=== PATIENT | male | born 1980 | race Two or more races ===

== ENCOUNTER 2018-09-23 23:28 | Inpatient (IN) | payer MEDICAID, OTHER ==
[~2018-09-23] VITALS: Ht 172.7 cm; Wt 70.0 kg
[2018-09-23] MEDS ORDERED: morphine 4 MG/ML inj SYRINge IV ONE (23:35)
[2018-09-23] MEDS ORDERED: NO HOME MEDS (23:39)
[2018-09-24] MEDS ORDERED: ondansetron/PF 4mg/2ml inj IV PRN ×2 (01:00→08:45)
[2018-09-24] MEDS ORDERED: mag hydrox/Alum hydrox/simeth 30ml oral suspension PO PRN (01:00)
[2018-09-24] MEDS ORDERED: magnesium hydroxide 30ml (MOM) UD suspension PO PRN (01:00)
[2018-09-24] MEDS ORDERED: HYDROcodone/acetaminophen 10/325mg tab PO PRN (01:00)
[2018-09-24] MEDS ORDERED: acetaminophen 325mg tablet PO PRN ×2 (01:00)
[2018-09-24 01:45] VITALS: BP 131/79
[2018-09-24] MEDS: normal saline 1000ml 1,000 ML IV SCH ×3 (01:51→21:45)
[2018-09-24] MEDS: HYDROmorphone inj. 0.5 MG/0.5 ML DISP.SYRIN IV PRN ×4 (01:51→16:25)
--- NOTE | 2018-09-24 06:13 | NUR ---
Problems reprioritized. Patient report given, questions answered & plan of care reviewed with Loni WALLS.
--- NOTE | 2018-09-24 06:16 | NUR ---
Patient in room [facility]. I have received report from KAVITA WALDRON and had the opportunity to ask questions and assume patient care.
[2018-09-24 07:00] VITALS: BP 110/67
[2018-09-24] MEDS: ceFOXitin 1 GM/D5W 50mL IVPB 50 ML IV SCH ×2 (07:53→16:24)
[2018-09-24] MEDS ORDERED: ceFOXitin 1 GM/D5W 50mL IVPB 50 ML IV SCH (08:00)
[2018-09-24] MEDS ORDERED: cefotetan inj 1 GM in normal saline 50ml IV soln 50 ML IV SCH (08:00)
[2018-09-24] MEDS ORDERED: ringers solution, lacted 1,000 ML IV SCH (08:45)
[2018-09-24] MEDS ORDERED: proCHLORperazine 10 MG/2 ml inj IV PRN (08:45)
[2018-09-24] MEDS ORDERED: morphine 4 MG/ML inj SYRINge IV PRN ×2 (08:45)
[2018-09-24] MEDS ORDERED: meperidine/PF 25mg/ml syringe IV PRN ×3 (08:45)
[2018-09-24] MEDS ORDERED: LIDOcaine 1% 30ml preserv. free vial ONE (08:51)
[2018-09-24] MEDS ORDERED: BUPIVAcaine/PF 2.5 mg/ml (0.25%) 30ml vial ONE (08:51)
[2018-09-24 09:48] LABS: BASOPHILS % (AUTO) 0.3 % (0-1); EOSINOPHILS % (AUTO) 0.1 % (0-6); HEMATOCRIT 43.2 % (42.0-52.0); HEMOGLOBIN 14.3 g/dl (14.0-17.9); LYMPHOCYTES % (AUTO) 6.9 % (21-51); MEAN CORPUSCULAR HEMOGLOBIN 28.2 PG (27.0-31.0); MEAN CORPUSCULAR VOLUME 85.4 FL (78-98); MONOCYTES # (AUTO) 1.1 X10'3 (0-0.9); NEUTROPHILS # (AUTO) 12.2 X10'3 (1.8-7.7); NEUTROPHILS % (AUTO) 84.7 % (42-75); PLATELET COUNT 198 X10'3 (140-440); RED BLOOD COUNT 5.06 X10'6 (4.70-6.10); RED CELL DISTRIBUTION WIDTH 14.2 % (11.5-14.5); WHITE BLOOD COUNT 14.4 X10'3 (4.5-11.0)
[2018-09-24 10:05] LABS: ALANINE AMINOTRANSFERASE 40 U/L (12-78); ALBUMIN 2.9 G/DL (3.4-5.0); ALBUMIN/GLOBULIN RATIO 0.7 (1.1-1.5); ALKALINE PHOSPHATASE 100 IU/L (46-116); ASPARTATE AMINO TRANSFERASE 19 U/L (10-37); BLOOD UREA NITROGEN 12 MG/DL (7-18); BUN/CREATININE RATIO 14.3 (5.4-32.0); CALCIUM 7.9 MG/DL (8.5-10.1); CHLORIDE 103 MMOL/L (99-107); CREATININE 0.84 MG/DL (0.60-1.10); GLUCOSE 83 MG/DL (70-104); TOTAL CARBON DIOXIDE 27.4 MMOL/L (24-32); TOTAL PROTEIN 6.8 G/DL (6.4-8.2); eGFR > 90 ML/MIN
[2018-09-24 10:07] LABS: ANION GAP 10 (8-16); POTASSIUM 3.6 MMOL/L (3.5-5.1); SODIUM 140 MMOL/L (135-145)
[2018-09-24 10:08] LABS: PARTIAL THROMBOPLASTIN TIME 29 SECONDS (22-32)
[2018-09-24] MEDS ORDERED: magnesium hydroxide 30ml (MOM) UD suspension PO ONE (10:10)
[2018-09-24 12:17] VITALS: BP 108/57
[2018-09-24 18:00] VITALS: BP 108/69
--- NOTE | 2018-09-24 18:33 | NUR ---
Problems reprioritized. Patient report given, questions answered & plan of care reviewed with KAVITA PRICE.
[2018-09-25] VITALS: BP 101/65
[2018-09-25] MEDS: ceFOXitin 1 GM/D5W 50mL IVPB 50 ML IV SCH ×4 (00:14→23:58)
[2018-09-25] MEDS: HYDROmorphone inj. 0.5 MG/0.5 ML DISP.SYRIN IV PRN ×2 (00:19→05:01)
[2018-09-25 05:26] LABS: BASOPHILS # (AUTO) 0.1 X10'3 (0-0.2); BASOPHILS % (AUTO) 0.4 % (0-1); EOSINOPHILS # (AUTO) 0.1 X10'3 (0-0.9); EOSINOPHILS % (AUTO) 0.5 % (0-6); HEMATOCRIT 40.3 % (42.0-52.0); HEMOGLOBIN 13.7 g/dl (14.0-17.9); LYMPHOCYTES # (AUTO) 1.2 X10'3 (1.1-4.8); MEAN CORPUSCULAR HEMOGLOBIN 28.6 PG (27.0-31.0); MEAN PLATELET VOLUME 7.9 FL (7.4-10.4); MONOCYTES # (AUTO) 1.4 X10'3 (0-0.9); MONOCYTES % (AUTO) 9.3 % (2-12); NEUTROPHILS % (AUTO) 81.8 % (42-75); PLATELET COUNT 186 X10'3 (140-440); RED BLOOD COUNT 4.79 X10'6 (4.70-6.10); RED CELL DISTRIBUTION WIDTH 14.2 % (11.5-14.5); WHITE BLOOD COUNT 14.7 X10'3 (4.5-11.0)
[2018-09-25 05:37] LABS: ALBUMIN 2.6 G/DL (3.4-5.0); ANION GAP 5 (8-16); BLOOD UREA NITROGEN 10 MG/DL (7-18); BUN/CREATININE RATIO 12.5 (5.4-32.0); CALCIUM 7.7 MG/DL (8.5-10.1); CHLORIDE 103 MMOL/L (99-107); GLUCOSE 96 MG/DL (70-104); POTASSIUM 3.8 MMOL/L (3.5-5.1); SODIUM 136 MMOL/L (135-145); TOTAL CARBON DIOXIDE 27.8 MMOL/L (24-32); eGFR > 90 ML/MIN
--- NOTE | 2018-09-25 06:28 | NUR ---
Problems reprioritized. Patient report given, questions answered & plan of care reviewed with Stacy WALLS. Addendum: 09/25/18 at 0629 by Makayla Bynum RN Amended: Links added.
[2018-09-25 08:00] VITALS: BP 103/68
[2018-09-25] MEDS: normal saline 1000ml 1,000 ML IV SCH ×2 (08:09→19:46)
[2018-09-25 11:30] VITALS: BP 112/63
--- NOTE | 2018-09-25 18:30 | NUR ---
Patient in room [facility]. I have received report from Stacy WALLS and had the opportunity to ask questions and assume patient care.
[2018-09-25 19:00] VITALS: BP 111/63
[2018-09-25] MEDS: lactobacillus rhamnosus 10,000 MMU CELLS/CAPSULE PO SCH (19:47)
[2018-09-25] MEDS: HYDROcodone/acetaminophen 5mg/325mg tablet PO PRN (19:48)
[2018-09-26] VITALS: BP 105/63
[2018-09-26] MEDS: HYDROcodone/acetaminophen 5mg/325mg tablet PO PRN (00:04)
[2018-09-26] MEDS: normal saline 1000ml 1,000 ML IV SCH ×2 (02:58→13:40)
[2018-09-26 05:24] LABS: BASOPHILS % (AUTO) 0.3 % (0-1); EOSINOPHILS # (AUTO) 0.2 X10'3 (0-0.9); EOSINOPHILS % (AUTO) 1.7 % (0-6); HEMATOCRIT 42.1 % (42.0-52.0); HEMOGLOBIN 13.8 g/dl (14.0-17.9); LYMPHOCYTES % (AUTO) 16.1 % (21-51); MEAN CORPUSCULAR HGB CONC 32.7 g/dL (33.0-36.5); MEAN CORPUSCULAR VOLUME 85.7 FL (78-98); MEAN PLATELET VOLUME 7.9 FL (7.4-10.4); MONOCYTES # (AUTO) 1.3 X10'3 (0-0.9); MONOCYTES % (AUTO) 10.8 % (2-12); NEUTROPHILS # (AUTO) 8.8 X10'3 (1.8-7.7); NEUTROPHILS % (AUTO) 71.1 % (42-75); PLATELET COUNT 193 X10'3 (140-440); RED BLOOD COUNT 4.91 X10'6 (4.70-6.10); RED CELL DISTRIBUTION WIDTH 14.2 % (11.5-14.5); WHITE BLOOD COUNT 12.4 X10'3 (4.5-11.0)
[2018-09-26 05:34] LABS: ALBUMIN 2.4 G/DL (3.4-5.0); ANION GAP 9 (8-16); BLOOD UREA NITROGEN 12 MG/DL (7-18); BUN/CREATININE RATIO 16.4 (5.4-32.0); CALCIUM 8.5 MG/DL (8.5-10.1); CHLORIDE 108 MMOL/L (99-107); CREATININE 0.73 MG/DL (0.60-1.10); GLUCOSE 95 MG/DL (70-104); POTASSIUM 4.1 MMOL/L (3.5-5.1); SODIUM 146 MMOL/L (135-145); TOTAL CARBON DIOXIDE 28.7 MMOL/L (24-32); eGFR > 90 ML/MIN
--- NOTE | 2018-09-26 06:30 | NUR ---
Problems reprioritized. Patient report given, questions answered & plan of care reviewed with Nicol WALLS. Patient has been NPO since midnight pending upcoming CT scan at 7 am today.
[2018-09-26 07:11] VITALS: BP 110/66
[2018-09-26] MEDS: ceFOXitin 1 GM/D5W 50mL IVPB 50 ML IV SCH ×2 (08:48→16:34)
[2018-09-26] MEDS: lactobacillus rhamnosus 10,000 MMU CELLS/CAPSULE PO SCH ×2 (08:49→20:42)
[2018-09-26 12:04] VITALS: BP 103/70
[2018-09-26] MEDS ORDERED: PEG 3350/Na sulf,bicarb,Cl/KCl oral sol 4 liter bottle PO ONE (13:00)
--- NOTE | 2018-09-26 18:40 | NUR ---
Gave report to Marzena WALLS.
--- NOTE | 2018-09-26 18:46 | NUR ---
Patient in room [facility]. I have received report from Nicol WALLS and had the opportunity to ask questions and assume patient care.
[2018-09-26 19:00] VITALS: BP 105/71
[2018-09-27] VITALS (13 sets, daily range): BP systolic 89–113; BP diastolic 46–76
[2018-09-27] MEDS: ceFOXitin 1 GM/D5W 50mL IVPB 50 ML IV SCH ×3 (00:15→15:44)
[2018-09-27 05:56] LABS: BASOPHILS % (AUTO) 0.3 % (0-1); EOSINOPHILS # (AUTO) 0.1 X10'3 (0-0.9); EOSINOPHILS % (AUTO) 1.4 % (0-6); HEMATOCRIT 46.3 % (42.0-52.0); HEMOGLOBIN 15.8 g/dl (14.0-17.9); LYMPHOCYTES # (AUTO) 1.3 X10'3 (1.1-4.8); LYMPHOCYTES % (AUTO) 15.8 % (21-51); MEAN CORPUSCULAR VOLUME 85.3 FL (78-98); MEAN PLATELET VOLUME 8.3 FL (7.4-10.4); MONOCYTES # (AUTO) 0.7 X10'3 (0-0.9); MONOCYTES % (AUTO) 8.4 % (2-12); NEUTROPHILS # (AUTO) 6.3 X10'3 (1.8-7.7); NEUTROPHILS % (AUTO) 74.1 % (42-75); PLATELET COUNT 246 X10'3 (140-440); RED BLOOD COUNT 5.43 X10'6 (4.70-6.10); RED CELL DISTRIBUTION WIDTH 14.4 % (11.5-14.5); WHITE BLOOD COUNT 8.5 X10'3 (4.5-11.0)
[2018-09-27 06:15] LABS: ALBUMIN 2.9 G/DL (3.4-5.0); ANION GAP 9 (8-16); BLOOD UREA NITROGEN 12 MG/DL (7-18); CALCIUM 9.4 MG/DL (8.5-10.1); CHLORIDE 104 MMOL/L (99-107); CREATININE 0.75 MG/DL (0.60-1.10); GLUCOSE 81 MG/DL (70-104); SODIUM 140 MMOL/L (135-145); TOTAL CARBON DIOXIDE 27.3 MMOL/L (24-32); eGFR > 90 ML/MIN
--- NOTE | 2018-09-27 06:30 | NUR ---
Problems reprioritized. Patient report given, questions answered & plan of care reviewed with Nicol WALLS.
[2018-09-27] MEDS: lactobacillus rhamnosus 10,000 MMU CELLS/CAPSULE PO SCH ×2 (08:28→19:36)
--- NOTE | 2018-09-27 09:10 | NUR ---
PT. TAKEN OFF SURGICAL UNIT TO GO TO GI LAB FOOR COLONOSCOPY.
[2018-09-27] MEDS ORDERED: fentaNYL/PF 50MCG/1 ML 2ML syringe ONE (09:32)
[2018-09-27] MEDS ORDERED: MIDAZolam 5mg/5ml vial ONE (09:33)
--- NOTE | 2018-09-27 11:04 | NUR ---
pT. RETURNED TO FLOOR FROM gi LAB.
--- NOTE | 2018-09-27 18:05 | NUR ---
Patient in room [facility]. I have received report from Nicol WALLS and had the opportunity to ask questions and assume patient care.
--- NOTE | 2018-09-27 18:38 | NUR ---
Gave report to Gloria WALLS.
[2018-09-28] VITALS: BP 123/75
[2018-09-28] MEDS: ceFOXitin 1 GM/D5W 50mL IVPB 50 ML IV SCH ×4 (00:03→23:30)
[2018-09-28 04:45] LABS: PLATELET COUNT 248 X10'3 (140-440); RED BLOOD COUNT 5.53 X10'6 (4.70-6.10)
[2018-09-28 04:48] LABS: BASOPHILS # (AUTO) 0.1 X10'3 (0-0.2); BASOPHILS % (AUTO) 0.7 % (0-1); EOSINOPHILS # (AUTO) 0.2 X10'3 (0-0.9); EOSINOPHILS % (AUTO) 2.9 % (0-6); HEMATOCRIT 46.9 % (42.0-52.0); HEMOGLOBIN 15.4 g/dl (14.0-17.9); LYMPHOCYTES % (AUTO) 25.8 % (21-51); MEAN CORPUSCULAR HEMOGLOBIN 27.9 PG (27.0-31.0); MEAN CORPUSCULAR HGB CONC 32.9 g/dL (33.0-36.5); MEAN CORPUSCULAR VOLUME 84.8 FL (78-98); MEAN PLATELET VOLUME 8.1 FL (7.4-10.4); MONOCYTES # (AUTO) 0.8 X10'3 (0-0.9); MONOCYTES % (AUTO) 10.1 % (2-12); NEUTROPHILS # (AUTO) 4.7 X10'3 (1.8-7.7); NEUTROPHILS % (AUTO) 60.5 % (42-75); RED CELL DISTRIBUTION WIDTH 14.2 % (11.5-14.5); WHITE BLOOD COUNT 7.7 X10'3 (4.5-11.0)
[2018-09-28 04:59] LABS: ALBUMIN 2.8 G/DL (3.4-5.0); ANION GAP 8 (8-16); BLOOD UREA NITROGEN 15 MG/DL (7-18); BUN/CREATININE RATIO 16.9 (5.4-32.0); CALCIUM 9.3 MG/DL (8.5-10.1); CHLORIDE 106 MMOL/L (99-107); CREATININE 0.89 MG/DL (0.60-1.10); GLUCOSE 95 MG/DL (70-104); POTASSIUM 4.2 MMOL/L (3.5-5.1); SODIUM 143 MMOL/L (135-145); TOTAL CARBON DIOXIDE 28.7 MMOL/L (24-32); eGFR > 90 ML/MIN
--- NOTE | 2018-09-28 06:35 | NUR ---
Problems reprioritized. Patient report given, questions answered & plan of care reviewed with Bret RN.
[2018-09-28 07:13] LABS: PLATELET ESTIMATE NORMAL; TOTAL CELLS COUNTED 100
[2018-09-28 07:26] VITALS: BP 106/66
[2018-09-28] MEDS: lactobacillus rhamnosus 10,000 MMU CELLS/CAPSULE PO SCH ×2 (07:59→20:01)
[2018-09-28 11:00] VITALS: BP 103/68
--- NOTE | 2018-09-28 18:37 | NUR ---
Patient in room [facility]. I have received report from Bret WALLS and had the opportunity to ask questions and assume patient care.
--- NOTE | 2018-09-28 18:40 | NUR ---
Patient in room [facility]. I have received report from Matthew WALLS and had the opportunity to ask questions and assume patient care.
--- NOTE | 2018-09-28 18:53 | NUR ---
Problems reprioritized. Patient report given, questions answered & plan of care reviewed with Gloria WALLS.
[2018-09-28 20:00] VITALS: BP 103/63
[2018-09-29] VITALS: BP 106/72
[2018-09-29 05:30] LABS: BASOPHILS % (AUTO) 0.4 % (0-1); EOSINOPHILS # (AUTO) 0.3 X10'3 (0-0.9); EOSINOPHILS % (AUTO) 2.8 % (0-6); HEMOGLOBIN 16.2 g/dl (14.0-17.9); LYMPHOCYTES # (AUTO) 2.2 X10'3 (1.1-4.8); LYMPHOCYTES % (AUTO) 23.7 % (21-51); MEAN CORPUSCULAR HEMOGLOBIN 28.4 PG (27.0-31.0); MEAN CORPUSCULAR HGB CONC 33.6 g/dL (33.0-36.5); MEAN CORPUSCULAR VOLUME 84.4 FL (78-98); MEAN PLATELET VOLUME 7.9 FL (7.4-10.4); MONOCYTES # (AUTO) 0.8 X10'3 (0-0.9); MONOCYTES % (AUTO) 8.4 % (2-12); NEUTROPHILS # (AUTO) 6.1 X10'3 (1.8-7.7); NEUTROPHILS % (AUTO) 64.7 % (42-75); PLATELET COUNT 304 X10'3 (140-440); RED BLOOD COUNT 5.69 X10'6 (4.70-6.10); RED CELL DISTRIBUTION WIDTH 14.3 % (11.5-14.5); WHITE BLOOD COUNT 9.4 X10'3 (4.5-11.0)
[2018-09-29 05:39] LABS: ALBUMIN 2.9 G/DL (3.4-5.0); ANION GAP 5 (8-16); BLOOD UREA NITROGEN 15 MG/DL (7-18); CALCIUM 9.2 MG/DL (8.5-10.1); CHLORIDE 105 MMOL/L (99-107); CREATININE 0.88 MG/DL (0.60-1.10); GLUCOSE 94 MG/DL (70-104); POTASSIUM 3.9 MMOL/L (3.5-5.1); SODIUM 139 MMOL/L (135-145); TOTAL CARBON DIOXIDE 29.4 MMOL/L (24-32); eGFR > 90 ML/MIN
--- NOTE | 2018-09-29 06:30 | NUR ---
Patient in room [facility]. I have received report from Gloria WALLS and had the opportunity to ask questions and assume patient care.
--- NOTE | 2018-09-29 06:31 | NUR ---
Problems reprioritized. Patient report given, questions answered & plan of care reviewed with Mary WALLS.
[2018-09-29 07:11] VITALS: BP 98/70
[2018-09-29] MEDS: lactobacillus rhamnosus 10,000 MMU CELLS/CAPSULE PO SCH (07:54)
[2018-09-29] MEDS: ceFOXitin 1 GM/D5W 50mL IVPB 50 ML IV SCH (07:55)
[2018-09-29 07:58] VITALS: BP 107/72
[2018-09-29] MEDS ORDERED: AMOX-422 PO (10:44)
--- NOTE | 2018-09-29 10:56 | NUR ---
Initial: Pt admit with perianal abscess which is improving per MD notes. Pt currently on regular diet with documented 75-100% PO intake throughout LOS meeting nutrient needs. LBM 09/27. No nutrition diagnosis at this time. Will continue to follow. Recommendations: 1) Continue regular diet 2) Wt per rx Addendum: 09/29/18 at [address] Amended: Links added.
[2018-09-29 12:13] VITALS: BP 104/66
--- NOTE | 2018-09-29 16:04 | NUR ---
Patient discharged with all belongings. Pt walked to front lobby with PCT.
== END 2018-09-29 15:39 | disposition home or self-care (01) | DRG 395 ==
LOC: ER 23:30 → SUR 3N 09-24 01:48 → CMPBEDREQ 09-26 20:59
PROVIDERS: ADMIT Hospitalist; ATTEND Family Medicine
PROC: 0DBP8ZX Excision of Rectum, Via Natural or Artificial Opening Endoscopic, Diagnostic (ICD-10-PCS; principal; 2018-09-27)
PROC: 0DBQ8ZZ Excision of Anus, Via Natural or Artificial Opening Endoscopic (ICD-10-PCS; 2018-09-27)
DX: K61.2 Anorectal abscess (principal); K62.89 Other specified diseases of anus and rectum; K59.00 Constipation, unspecified
CPT/HCPCS: 36415; 45380; 45385; 72192; 80048; 80053; 85025; 85610; 85730; 87081; 96374; 99152; 99285; A4620; C1773; G0378; J0694; J1170; J2001; J2250; J2270; J3010; J3490; J7030; J7040; J7120